=== PATIENT | female | born 2000 | race Two or more races ===

== ENCOUNTER 2021-11-15 22:50 | Inpatient (IN) | payer MEDICAID ==
[~2021-11-15] VITALS: Ht 160 cm; Wt 65.8 kg
[2021-11-15 22:52] VITALS: BP 114/63
--- NOTE | 2021-11-15 23:00 | NUR ---
PT TAKEN TO BED 8 VIA WC FOLLOWING TRIAGE
--- NOTE | 2021-11-15 23:33 | NUR ---
Dr. Villegas examining patient.
[2021-11-16 00:05] LABS: BASOPHILS # (AUTO) 0.1 K/uL (0.00-0.22); BASOPHILS % (AUTO) 0.5 % (0.0-2.0); EOSINOPHILS # (AUTO) 0.1 K/uL (0-0.4); EOSINOPHILS % (AUTO) 1.1 % (0.0-4.0); HEMATOCRIT 33.3 % (36-48); HEMOGLOBIN 11.4 g/dL (12.0-16.0); LYMPHOCYTES # (AUTO) 2.3 K/uL (2.5-16.5); LYMPHOCYTES % (AUTO) 21.7 % (20.5-51.1); MEAN CORPUSCULAR HEMOGLOBIN 32 pg (27-31); MEAN CORPUSCULAR HGB CONC 34 g/dL (33-37); MEAN CORPUSCULAR VOLUME 92.3 fL (80-94); MONOCYTES # (AUTO) 0.7 K/uL (0.8-1.0); MONOCYTES % (AUTO) 6.8 % (1.7-9.3); NEUTROPHILS # (AUTO) 7.4 K/uL (1.8-7.7); NEUTROPHILS % (AUTO) 69.9 % (42.2-75.2); PLATELET COUNT (AUTO) 279 K/uL (140-450); RED CELL DISTRIBUTION WIDTH 12.7 % (11.6-13.7); WHITE BLOOD COUNT (AUTO) 10.5 K/uL (4.8-10.8)
--- NOTE | 2021-11-16 00:08 | NUR ---
RADIOLOGY AT BEDSIDE
--- NOTE | 2021-11-16 00:18 | NUR ---
ULTRASOUND AT BEDSIDE
[2021-11-16 00:32] LABS: ALBUMIN 3.1 g/dL (3.4-5.0); ANION GAP 11.7 (8-16); ASPARTATE AMINOTRANSFERASE 7 U/L (15-37); CARBON DIOXIDE 26.9 mmol/L (21-32); CHLORIDE 103 mmol/L (98-107); CREATININE 0.6 mg/dL (0.6-1.3); GFR ARICAN-AMERICAN 159 mL/min (>90); GLUCOSE 86 mg/dL (74-106); POTASSIUM 3.6 mmol/L (3.5-5.1); SODIUM SERUM 138 mmol/L (136-145); TOTAL BILIRUBIN 0.3 mg/dL (0.0-1.0); UREA NITROGEN, BLOOD 10 mg/dL (7-18)
[2021-11-16] MEDS ORDERED: MORPHINE SULFATE 4 MG/ML SYR IVP ONE (00:35)
--- NOTE | 2021-11-16 01:08 | NUR ---
Patient reported, ~ 11 weeks, Dr. Villegas notified, before given Morphine, Dr. Villegas spoke with patient and verbal order to continue Morphine medication.
--- NOTE | 2021-11-16 01:10 | NUR ---
Urine sample collected and sent to lab.
[2021-11-16] MEDS ORDERED: NACL 0.9% 1,000 ML IV ONE ×2 (01:20→06:30)
--- NOTE | 2021-11-16 01:41 | NUR ---
21YR OLD FEMALE BIB SELF C/O VAG BLEED X TODAY. PT STATES SHES PREG. NO CARE OF YET. LMP 6/12. BRIGHT RED BLOOD NO CLOTS. LOWER ABD CRAMPING RADIATES TO LOWER BACK. 10/10 PAIN LEVEL. PT IS . SKIN IS WARM DRY AND INTACT. RESP EVEN AND UNLABORED. STATES HAVING CP AND SOB. SP02 98%RA EKG DONE NSR. HOB ELEVATED AND BED AT LOWEST LEVEL. PT IS ON BEDSIDE MANAGER RENEWABLE ENERGY. NKDA NO MED HX
[2021-11-16 02:03] LABS: APPEARANCE,URINE SL CLOUDY (CLEAR); BILIRUBIN,URINE 1+ (NEGATIVE); BLOOD, URINE 3+ (NEGATIVE); COLOR,URINE DARK YELLOW (YELLOW); LEUKOCYTE ESTERASE ,URINE NEGATIVE (NEGATIVE); NITRITE, URINE NEGATIVE (NEGATIVE); PH,URINE 6.5 (5.0-9.0); UGLUCOSE NEGATIVE (NEGATIVE)
[2021-11-16 02:11] LABS: RBC,URINE >20 (MANY) /HPF (0-5)
[2021-11-16 02:12] LABS: WBC,URINE 0-5 /HPF (0-5)
--- NOTE | 2021-11-16 02:34 | NUR ---
PT IS TEARFUL DR Cerda AT BEDSIDE. POSS MISCARRIAGE . PT IS 11WEEKS GEST PT WAS AMBULATORY TO BATHROOM WITH ASSIT. GAIT WAS STEADY. NOTICABLE BRIGHT RED BLOOD. PT ON AGENT BROKER HOB ELEVATED. PENDING DC
[2021-11-16 02:37] LABS: HEMATOCRIT 32.2 % (36-48); HEMOGLOBIN 10.7 g/dL (12.0-16.0); MEAN CORPUSCULAR HEMOGLOBIN 31 pg (27-31); MEAN CORPUSCULAR HGB CONC 33 g/dL (33-37); MEAN CORPUSCULAR VOLUME 92.9 fL (80-94); PLATELET COUNT (AUTO) 253 K/uL (140-450); RED BLOOD CELL COUNT(AUTO) 3.47 MIL/uL (4.20-5.40); RED CELL DISTRIBUTION WIDTH 12.8 % (11.6-13.7); WHITE BLOOD COUNT (AUTO) 10.6 K/uL (4.8-10.8)
--- NOTE | 2021-11-16 04:24 | NUR ---
PT TO BE ADMITTED TO [facility].
--- NOTE | 2021-11-16 06:28 | NUR ---
COVID SWAB COLLECTED AND SENT TO LAB
[2021-11-16] MEDS ORDERED: ONDANSETRON 4 MG/2 ML VIAL IVP PRN (06:30)
[2021-11-16] MEDS ORDERED: NACL 0.9% 1,000 ML IV SCH ×2 (06:30→10:40)
[2021-11-16] MEDS ORDERED: POTASSIUM CHLORIDE 10 MEQ TABER PO PRN (06:30)
[2021-11-16] MEDS ORDERED: MAGNESIUM OXIDE 400 MG TAB PO PRN (06:30)
[2021-11-16] MEDS ORDERED: ACETAMINOPHEN 325 MG TAB PO ONE (06:30)
--- NOTE | 2021-11-16 06:39 | NUR ---
PT IS CURRENTLY BREAST FEEDING NO PUMP IS AVIAL AT THE MOMENT. OB WILL CALL BACK TO BRING ONE FOR PT
[2021-11-16] MEDS ORDERED: metroNIDAZOLE 500 MG/NS PREMIX 100 ML IV SCH (07:00)
--- NOTE | 2021-11-16 07:20 | NUR ---
REPORT GIVEN TO YEN FULLER. TRANSFER OF CARE AT THIS TIME
--- NOTE | 2021-11-16 07:21 | NUR ---
REPORT RECEIVED FROM PANCHITO FULLER. ASSUMED CARE AT THIS TIME
[2021-11-16] MEDS ORDERED: cefTRIAXone 1,000 MG VIAL ONE (08:04)
--- NOTE | 2021-11-16 09:20 | NUR ---
L&D DOES NOT HAVE BREASTPUMP. JOSE RAMON MADE AWARE, AWAITING BREASTPUMP TO BE DELIVERED TO ER. PT AWARE.
--- NOTE | 2021-11-16 10:21 | NUR ---
PTS BP 85/43, TAKING MULTIPLE TIMES ON BOTH ARMS. PAGED ONCALL DR TOBIN. RECEIVED VERBAL ORDER FOR IV BOLUS. DR TOBIN STATED HE WILL CHANGE ANTIBIOTIC ORDER. HOLDING PT IN ER UNTIL BP IMPROVES
--- NOTE | 2021-11-16 10:41 | NUR ---
DR TOBIN AT BEDSIDE EVALUATING PT
--- NOTE | 2021-11-16 11:05 | NUR ---
pt requested to speak w/ CNO. CNO notified
--- NOTE | 2021-11-16 11:08 | NUR ---
CNO at bedside
[2021-11-16] MEDS ORDERED: NOREPINEPHRINE 4 MG in DEXTROSE 5% 250 ML IV PRN (11:20)
--- NOTE | 2021-11-16 11:20 | NUR ---
PT REQUESTING TO BRING HER BABY IN TO BREASTFEED. HER BABY IS SOLELY BREASTFED. CNO JOSE RAMON MADE AWARE, STATED WE ARE NOT ABLE TO BRING HER BABY BACK. JOSE RAMON TRYING TO GET PT A BREAST PUMP AT THIS TIME. PT REQUESTING TO SPEAK WITH ADMITTING SHE IS REQUESTING TO STEP OUTSIDE WITH A NURSE TO BREASTFEED.
--- NOTE | 2021-11-16 11:23 | NUR ---
DR TOBIN AT BEDSIDE SPEAKING WITH PATIENT
--- NOTE | 2021-11-16 11:47 | NUR ---
FORMULA PROVIDED TO PATIENT
[2021-11-16] MEDS: DEXT 5% /NACL 0.9% 1,000 ML IV SCH ×2 (12:10→21:45)
--- NOTE | 2021-11-16 12:15 | NUR ---
Patient will be admitted to care of MD REYNAGA. Admited to ICU. Will go to rooM 1. Belongings list completed. Report to RAUDEL COSME.
--- NOTE | 2021-11-16 12:27 | NUR ---
PATIENT HAS BEEN SCREENED AND CATEGORIZED LOW NUTRITION RISK. PATIENT WILL BE SEEN WITHIN 7 DAYS OF ADMISSION. 11/23/[address]
--- NOTE | 2021-11-16 12:30 | NUR ---
RECEIVED FROM ER IN [facility]. SHE IS AWAKE ALERT WELL ORIENTED. SKIN DRY AND WARM TO TOUCH COLOR NORMAL AND INTACT. IV ON LT. ARM #20 AND RT HAND # 20,IV FLUID 5% IN NS AT 100ML/HR. NO BLEEDING NOTE. ADM IN ICU#1 MAKE HER COMFORTABLE. ORIENTED TO CALL LIGHT.
--- NOTE | 2021-11-16 12:45 | NUR ---
VISIT BY SERENA BOATENG AT BED SIDE. NO ORDER RECEIVED.
[2021-11-16 14:00] VITALS: BP 95/64
--- NOTE | 2021-11-16 14:00 | NUR ---
Breast pump brought to pt. Nurses at bedside educating pt on equipment use.
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
[2021-11-16] MEDS: metroNIDAZOLE 500 MG/NS PREMIX 100 ML IV SCH ×2 (15:42→21:40)
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
[2021-11-16 16:00] VITALS: BP 91/62
--- NOTE | 2021-11-16 17:30 | NUR ---
Paged for additional orders. Per Dr. Lakhani, pt to stay tonight to continue monitoring.
[2021-11-16 18:00] VITALS: BP 91/45
[2021-11-16] MEDS: ACETAMINOPHEN 325 MG TAB PO PRN (18:42)
--- NOTE | 2021-11-16 18:45 | NUR ---
AWAKE AND ALERT DINNER TOOK 100%
--- NOTE | 2021-11-16 19:15 | NUR ---
Endorsed to shift mechanic nurse for continuity of care.
--- NOTE | 2021-11-16 19:15 | NUR ---
RECEIVE ENDORSEMENT FROM DAY SHIFT. PATIENT IS AWAKE, ALERT, AND ORIENTED X4. PATIENT IS SITTING UP IN BED. PATIENT IS 9WKS AND WAS ADMITTED FOR VAGINAL BLEEDING. PATIENT IS ALSO WHILE SITTING UP IN BED AND HAS 6 MONTH OLD CHILD. NURSES FROM OB PRESENT AT BEDSIDE CHECKING HEART RATE WHICH WAS 152. PATIENT NOTIFIED. WILL CONTINUE TO MONITOR PATIENT FOR ANY CHANGES
[2021-11-16 20:00] VITALS: BP 97/65
[2021-11-16] MEDS: FAMOTIDINE 20 MG/2 ML VIAL IV SCH (21:41)
[2021-11-16 22:00] VITALS: BP 107/66
--- NOTE | 2021-11-16 22:41 | NUR ---
PATIENT CONCERNED ABOUT BEING ABLE TO CARE FOR HER SON WHO IS CURRENTLY IN THE CARE OF A FRIEND. PATIENT REPORTS THAT IF THE MD DOESN'T RELEASE HER TOMORROW, THEN [facility] NEEDS TO BE ABLE TO CARE FOR BOTH PATIENT AND HER CHILD. PATIENT REPORTED THAT SHE WILL NOT SIGN PAPERS TO SIGN AMA TOMORROW IF GIVEN THE OPTION, STATES "I'M AT RISK FOR MISCARRIAGE AND IT WILL BE THE FAULT OF THE HOSPITAL IF YOU LET ME LEAVE". PATIENT WAS INFORMED THAT UNFORTUNATELY WE ARE NOT ABLE TO ACCOMMODATE PATIENT WITH HER CHILD AND THAT THERE ARE RULES IN PLACE DUE TO COVID REGARDING THE PRESENCE OF CHILDREN AND INFANTS IN THE HOSPITAL UNLESS THEY ARE THE PATIENT. PATIENT WAS INFORMED THAT SHE CAN HAVE THE CONVERSATION DURING THE DAY TIME WITH THE MD WHO CAN BETTER ADDRESS IF SHE WILL NEED TO REMAIN ADMITTED. PATIENT WAS ALSO INFORMED THAT MORE RESOURCES WOULD BE AVAILABLE TO ASSIST HER IF SHE NEEDS HELP WITH CHILDCARE -PAIRER -BILLING COLLECTIONS SPECIALIST TO BE NOTIFIED IF PATIENT REQUIRES THEIR ASSISTANCE
--- NOTE | 2021-11-16 23:50 | NUR ---
IV ACCESS REMOVED FROM RIGHT HAND DUE TO PATIENT COMPLAINT OF ITCHING AND SWELLING. PROVIDED PATIENT WITH AN ICE TO HELP CALM ITCHING.
[2021-11-17] VITALS (8 sets, daily range): BP systolic 92–110; BP diastolic 43–68
[2021-11-17] MEDS: metroNIDAZOLE 500 MG/NS PREMIX 100 ML IV SCH (05:00)
[2021-11-17 05:28] LABS: BASOPHILS % (AUTO) 0.5 % (0.0-2.0); EOSINOPHILS # (AUTO) 0.2 K/uL (0-0.4); EOSINOPHILS % (AUTO) 2.2 % (0.0-4.0); HEMATOCRIT 32.2 % (36-48); LYMPHOCYTES # (AUTO) 2.3 K/uL (2.5-16.5); LYMPHOCYTES % (AUTO) 25.3 % (20.5-51.1); MEAN CORPUSCULAR HEMOGLOBIN 32 pg (27-31); MEAN CORPUSCULAR HGB CONC 34 g/dL (33-37); MEAN CORPUSCULAR VOLUME 91.9 fL (80-94); MONOCYTES # (AUTO) 0.6 K/uL (0.8-1.0); NEUTROPHILS # (AUTO) 6.1 K/uL (1.8-7.7); PLATELET COUNT (AUTO) 283 K/uL (140-450); RED CELL DISTRIBUTION WIDTH 12.8 % (11.6-13.7); WHITE BLOOD COUNT (AUTO) 9.2 K/uL (4.8-10.8)
[2021-11-17 05:46] LABS: MAGNESIUM 1.5 mg/dL (1.8-2.4); PHOSPHORUS 3.8 mg/dL (2.5-4.9)
[2021-11-17 06:09] LABS: PROTHROMBIN TIME 9.9 secs (10.8-13.4)
--- NOTE | 2021-11-17 06:20 | NUR ---
UNABLE TO OBTAIN IV ACCESS x3 NURSES x3 TIMES EACH. MESSAGE LEFT FOR MEDICAL COLLECTOR MD REGARDING IV ACCESS AND INABILITY TO CONTINUE SCHEDULED IV MEDS (FLAGYL, ROCEPHIN, AND IVF). OF 649; NO RESPONSE FROM MD. WILL ENDORSE TO DAYSHIFT TO FOLLOW UP
[2021-11-17 06:25] LABS: ANION GAP 5.4 (8-16); CARBON DIOXIDE 22.1 mmol/L (21-32); CREATININE 0.5 mg/dL (0.6-1.3); POTASSIUM 3.5 mmol/L (3.5-5.1)
--- NOTE | 2021-11-17 07:14 | NUR ---
RECEIVED BEDSIDE REPORT FROM NATASHA COSME FOR CONTINUITY OF CARE.
--- NOTE | 2021-11-17 07:15 | NUR ---
PATIENT IS AWAKE, ALERT, AND ORIENTED X4. PATIENT IS RESTING COMFORTABLY IN BED, RESPIRATIONS EVEN AND UNLABORED. ROOM AIR SATTING 98%. SR ON MONITOR. DOES NOT HAVE IV'S AT THIS TIME. BOWEL SOUNDS ACTIVE IN ALL FOUR QUADRANTS. CONTINENT OF BOWEL AND BLADDER. NORMAL STRENGTH IN EXTREMITIES. CALL LIGHT WITHIN REACH, BED IN LOWEST POSITION.
--- NOTE | 2021-11-17 07:22 | NUR ---
ENDORSED CARE OF PATIENT TO DAY SHIFT (BA MCHUGH)
[2021-11-17] MEDS: DEXT 5% /NACL 0.9% 1,000 ML IV SCH (09:20)
[2021-11-17] MEDS: FAMOTIDINE 20 MG/2 ML VIAL IV SCH (09:27)
--- NOTE | 2021-11-17 09:45 | NUR ---
SEEN AND EXAMINED BY DR TOBIN. PLANS FOR D/C TODAY.
[2021-11-17] MEDS: ACETAMINOPHEN 325 MG TAB PO PRN (10:38)
--- NOTE | 2021-11-17 10:38 | NUR ---
PT C/O HEADACHE, MEDICATED WITH PRN TYLENOL.
[2021-11-17] MEDS ORDERED: MULTIVIT/MIN/CA/FE/FA 1 TAB PO SCH (11:00)
--- NOTE | 2021-11-17 12:40 | NUR ---
PT SIGNED ALL D/C PAPERWORK. EDUCATION GIVEN.
--- NOTE | 2021-11-17 13:37 | NUR ---
PT DISCHARGED WITH ALL BELONGINGS AND TAKEN TO PERSONAL VEHICLE VIA WHEELCHAIR. FRIEND IS DRIVING HER HOME.
== END 2021-11-17 13:35 | disposition home or self-care (01) | DRG 566 ==
LOC: MED 22:50 → MIC 11-16 06:33 → MTU 11-16 06:33 → OBSVTOIN 11-16 11:16 → MIC 11-16 11:56
PROVIDERS: ADMIT Student in an Organized Health Care Education/Training Program; ATTEND Student in an Organized Health Care Education/Training Program
DX: O20.8 Other hemorrhage in early pregnancy (principal); R57.1 Hypovolemic shock; R65.21 Severe sepsis with septic shock; A41.9 Sepsis, unspecified organism; O98.811 Other maternal infectious and parasitic diseases complicating pregnancy, first trimester; E86.9 Volume depletion, unspecified; O99.281 Endocrine, nutritional and metabolic diseases complicating pregnancy, first trimester; O99.011 Anemia complicating pregnancy, first trimester; Z3A.11 11 weeks gestation of pregnancy; Z20.822 Contact with and (suspected) exposure to COVID-19
CPT/HCPCS: 36415; 71045; 76817; 80048; 80053; 81001; 83735; 84100; 84295; 84484; 84702; 85021; 85025; 85610; 85730; 86886; 86900; 86901; 87081; 93005; 94010; 96361; 96365; 96375; 99285; J0696; J2270; J3490; J7060; Q0092